=== PATIENT | female | born 1990 | race Caucasian/White ===

== ENCOUNTER 2018-10-05 22:32 | Emergency (ER) | payer SELFPAY ==
--- NOTE | 2018-10-05 23:28 | ED PDOC ---
HPI: Abdomen Chief Complaint (Nursing): GI Problem History Per: Patient History/Exam Limitations: no limitations Onset/Duration Of Symptoms: Days (3) Quality Of Discomfort: Burning Associated Symptoms: Nausea, Vomiting, Loss Of Appetite Exacerbating Factors: Food Additional Complaint(s): Pt is a 28 y/o female with hx of Gastritis and Chronic Canniboid use presenting with intractable vomiting and epigastric burning pain since Sunday. States that the vomiting is mostly undigested food, worsened with food and slightly improved with smoking marijuana. She admits that she smokes MJ everyday and on occasion will feel nauseated if she skips days, last smoked was yesterday morning. She denies fever/chills, sick contacts, cough/congestion, diarrhea, blood in stool, or recent alcohol ingestion. ROS: + Constipation, Last BM 2 days ago, passing gas. PMD: none PMHX: Gastritis, Prior ED visit for intractable vomiting PSurg: None Meds: none Social: Denies smoking cigarettes, smokes canniboid daily, denies heavy EOTH use Past Medical History Reviewed: Historical Data, Nursing Documentation, Vital Signs Vital Signs: Last Vital Signs Temp 98.3 F 10/05/18 22:44 Pulse 74 10/05/18 22:44 Resp 16 10/05/18 22:44 BP 117/80 10/05/18 22:44 Pulse Ox 100 10/05/18 22:44 - Medical History PMH: Asthma, Gastritis - Surgical History Surgical History: No Surg Hx - Family History Family History: States: Unknown Family Hx - Immunization History Hx Tetanus Toxoid Vaccination: No - Home Medications Home Medications: Ambulatory Orders Medication Instructions Recorded Cephalexin [Keflex] 500 mg PO BID #14 cap 04/30/14 DiphenhydrAMINE [Benadryl] 25 mg PO Q4H PRN #30 cap 04/30/14 Dicyclomine [Bentyl] 20 mg PO BID PRN #30 tab 02/11/16 Omeprazole Magnesium [Prilosec Otc] 20 mg PO DAILY #30 tcp 02/11/16 Ondansetron [Zofran] 4 mg PO Q8H PRN #30 tab 02/11/16 Famotidine [Pepcid] 20 mg PO DAILY #14 tab 03/26/16 Omeprazole 20 mg PO DAILY #30 capsule. 03/26/16 Ondansetron ODT [Zofran ODT] 4 mg PO Q8 PRN #12 odt 03/26/16 Famotidine [Pepcid] 20 mg PO DAILY #30 tab 08/11/16 Ondansetron [Zofran Odt] 4 mg PO ASDIR PRN #20 odt 08/11/16 traMADol [Ultram] 50 mg PO TID PRN #20 tab 08/11/16 - Allergies Allergies/Adverse Reactions: Allergies Allergy/AdvReac Type Severity Reaction Status Date / Time No Known Allergies Allergy Verified 10/05/18 22:47 Review of Systems Constitutional: Negative for: Fever, Chills Cardiovascular: Negative for: Chest Pain Respiratory: Negative for: Cough, Shortness of Breath Gastrointestinal: Positive for: Nausea, Vomiting, Abdominal Pain. Negative for: Diarrhea, Melena, Hematochezia, Hematemesis Physical Exam - Physical Exam Appears: Positive for: In Acute Distress (midly distressed, candy ctive vomiting seen ) Head Exam: Positive for: ATRAUMATIC Skin: Positive for: Normal Color Eye Exam: Positive for: Normal appearance. Negative for: Nystagmus, Scleral icterus ENT: Positive for: Normal ENT Inspection Neck: Positive for: Normal Cardiovascular/Chest: Positive for: Regular Rate, Rhythm Respiratory: Positive for: Normal Breath Sounds. Negative for: Accessory Muscle Use, Crackles, Rales, Wheezing Gastrointestinal/Abdominal: Positive for: Bowel Sounds, Soft, Tenderness (mild epigastric). Negative for: Organomegaly, Guarding, Hernia Extremity: Positive for: Capillary Refill. Negative for: Pedal Edema Neurologic/Psych: Positive for: Alert, Oriented - ECG O2 Sat by Pulse Oximetry: 100 Medical Decision Making Medical Decision Making: Pt is a 28 y/o female with hx of Gastritis and Chronic Canniboid use presenting with intractable vomiting and epigastric burning pain since Sunday. Likely cyclical vomiting syndrome related to chronic canniboid abuse. Pepcid Zofran Reglan Capcaicin topical cream 1L NS Bolus 0207 Pt re-assessed, states she feels better. Tolerated fluid. Counseled on cessation of marijuana and advised to establish care at clinic for f/u. Disposition - Clinical Impression Clinical Impression: Vomiting, Abdominal pain - Patient ED Disposition Is Patient to be Admitted: No Counseled Patient/Family Regarding: Studies Performed, Diagnosis, Need For Followup - Disposition Disposition: Routine/Home Disposition Time: 02:08 Condition: FAIR Additional Instructions: Avoid marijuana use,advance diet slowly, return if symptoms worsen. f/u with PMD. Instructions: Nausea and Vomiting, Adult, Marijuana Use and Addiction Forms: [facility] (Kinyarwanda)
[2018-10-05] MEDS ORDERED: Sodium Chloride 0.9% 1,000 ML IV SCH (23:30)
[2018-10-06 03:04] VITALS: BP 108/65; PULSE 60; RESP 18; TEMP 98.5; O2SAT 99
== END 2018-10-06 03:05 | disposition home or self-care (01) ==
LOC: H.ER 22:32
DX: R10.9 Unspecified abdominal pain (principal); R11.0 Nausea
CPT/HCPCS: 81025; 96361; 96374; 96375; 99284; J2405; J2765; J7030

== ENCOUNTER 2018-12-04 11:03 | Emergency (ER) | payer OTHER ==
[2018-12-04 11:07] VITALS: O2SAT 100; BMI 26.7
[2018-12-04] MEDS ORDERED: Sodium Chloride 0.9% 1,000 ML IV STA ×2 (11:28→16:08)
--- NOTE | 2018-12-04 11:50 | ED PDOC ---
HPI: Abdomen Time Seen by Provider: 12/04/18 11:14 Chief Complaint (Nursing): Abdominal Pain Chief Complaint (Provider): Abdominal Pain History Per: Patient History/Exam Limitations: no limitations Onset/Duration Of Symptoms: Days (4) Location Of Pain/Discomfort: Epigastric, Suprapubic Associated Symptoms: Vomiting Additional Complaint(s): 28 y/o female presents to the ED complaining of abdominal pain associated with vomiting since 4 days ago. Patient states diffused abdominal pain, present most of the time, and worst when she vomits. She reports she had a small amount of blood in her vomit only today. Patient suffers from gastritis but does not taken any medication for it. Patient admits having a chemical 1 week ago from being 7 weeks and had a small vaginal bleeding since then. She admits this was her 5th (g5). Patient denies bloody stool, diarrhea, urinary problems, food exposure, fever, or any back problems. PMD: none provided Past Medical History Reviewed: Historical Data, Nursing Documentation, Vital Signs Vital Signs: Last Vital Signs Temp 98.6 F 12/04/18 11:06 Pulse 68 12/04/18 11:06 Resp 15 12/04/18 11:06 BP 106/68 12/04/18 11:06 Pulse Ox 100 12/04/18 11:06 Primary Care Provider: FAMILY PROVIDER,NO - Medical History PMH: Asthma, Gastritis - Family History Family History: States: Unknown Family Hx - Immunization History Hx Tetanus Toxoid Vaccination: No - Home Medications Home Medications: Ambulatory Orders Medication Instructions Recorded Ondansetron ODT [Zofran ODT] 4 mg PO Q8 PRN #12 odt 12/04/18 Sulfamethoxazole/Trimethoprim 1 each PO BID #20 tablet 12/04/18 [Bactrim Ds Tablet] - Allergies Allergies/Adverse Reactions: Allergies Allergy/AdvReac Type Severity Reaction Status Date / Time No Known Allergies Allergy Verified 10/05/18 22:47 Review of Systems ROS Statement: Except As Marked, All Systems Reviewed And Found Negative Constitutional: Negative for: Fever Gastrointestinal: Positive for: Vomiting, Abdominal Pain (superpubic and epigastric), Hematemesis Genitourinary Female: Positive for: Vaginal Bleeding. Negative for: Dysuria, Frequency, Hematuria, Vaginal Discharge Musculoskeletal: Negative for: Back Pain Physical Exam - Reviewed Nursing Documentation Reviewed: Yes Vital Signs Reviewed: Yes - Physical Exam Appears: Positive for: Well, Non-toxic, No Acute Distress, Uncomfortable Head Exam: Positive for: ATRAUMATIC, NORMAL INSPECTION, NORMOCEPHALIC Skin: Positive for: Normal Color, Warm, Dry Eye Exam: Positive for: EOMI, Normal appearance, PERRL ENT: Positive for: Normal ENT Inspection Neck: Positive for: Normal, Painless ROM, Supple Cardiovascular/Chest: Positive for: Regular Rate, Rhythm. Negative for: Murmur Respiratory: Positive for: Normal Breath Sounds. Negative for: Wheezing Gastrointestinal/Abdominal: Positive for: Normal Exam, Soft, Tenderness (superpubic and epigastic. ) Back: Positive for: Normal Inspection. Negative for: L CVA Tenderness, R CVA Tenderness Extremity: Positive for: Normal ROM Neurological/Psych: Positive for: Awake, Alert, Normal Tone, Oriented (x3). Negative for: Motor/Sensory Deficits - Laboratory Results Result Diagrams: 12/04/18 12:55 12/04/18 12:55 - ECG O2 Sat by Pulse Oximetry: 100 - Progress Re-evaluation Time: 18:26 Condition: Re-examined, Improved Medical Decision Making Medical Decision Making: Time:1128 Initial Impression: Abdominal pain and vomiting. Acute gastritis, pancreatitis, UTI, complication, and incomplete miscarriage. Initial Plan: -CMP -Lipase -ED urine -CBC -Sodium chloride -Pepcid 20mg -Zofran 4mg -Urine culture -Urinalysis -Ultrasound -Reassess 1307: FINDINGS: LIVER: Measures 17.1 cm in length. Normal echogenicity of the liver parenchyma. There is a 2.0 x 1.9 x 1.3 cm there is a compressed hypoechoic lesion without central vascularity the right hepatic lobe not significantly changed since the prior examination. No intrahepatic bile duct dilatation. GALLBLADDER: There are no gallstones, wall thickening or pericholecystic fluid. The sonographic Barbosa's sign is negative. COMMON BILE DUCT: Measures 1.8 mm. No stones. No dilatation. PANCREAS: Unremarkable as visualized. No mass. No ductal dilatation. RIGHT KIDNEY: Measures 10.0 cm in length. Normal echogenicity. No calculus, mass, or hydronephrosis. AORTA: No aneurysmal dilatation. IVC: Unremarkable. OTHER FINDINGS: None . IMPRESSION: No cholelithiasis or biliary dilatation. 2.0 x 1.9 x 1.3 cm indeterminate lesion in the right hepatic lobe. A dedicated CT scan of the abdomen without and with intravenous contrast with liver protocol is recommended for definitive characterization. 1310: FINDINGS: UTERUS: Measures 10.4 x 6.5 x 5.0 cm. Anteverted, normal in size and appearance. No fibroid or other mass lesion seen. ENDOMETRIUM: Measures 14 mm in diameter. The central endometrial echo complex is heterogene ous without increased vascularity. CERVIX: There are presumable blood products in the endocervical canal. RIGHT OVARY: Measures 4.4 x 2.8 x 2.7 cm. No solid mass. Normal flow. There is a 2.7 x 2.6 x 2.1 cm simple cyst. LEFT OVARY: Measures 2.2 x 1.8 x 1.5 cm. No solid mass. Normal flow. FREE FLUID: No significant free fluid noted. OTHER FINDINGS: None. IMPRESSION: Heterogeneous central endometrial echo complex without evidence for retained products of conception most compatible with evolving block products. 0.7 cm simple cyst in right ovary. 1642 CT FINDINGS: LOWER THORAX: The visualized lungs are clear. LIVER: The liver is normal in size. There is homogeneous enhancement. No intrahepatic biliary ductal dilatation. There is redemonstration of a 1.7 x 1.9 cm isodense lesion in the posterior superior right hepatic lobe and a 2nd stable 1.9 x 1.5 cm isodense lesion in the posterior inferior right hepatic lobe. Both lesions demonstrate similar enhancing pattern with homogeneous enhancement in the portal venous phase. GALLBLADDER AND BILE DUCTS: The gallbladder is well distended without cholelithiasis. PANCREAS: Normal in size with homogeneous enhancement. No gross lesion or ductal dilatation. SPLEEN: Normal in size and appearance. ADRENALS: Normal in size without discrete nodule. KIDNEYS AND URETERS: Normal in size with homogeneous enhancement. No hydronephrosis. No solid mass. VASCULATURE: No aortic aneurysm. No aortic atherosclerotic calcification or mural plaque present. BOWEL: The visualized bowel is normal in caliber. No obstruction. No gross mural thickening. PERITONEUM: No free fluid. No free air. LYMPH NODES: No enlarged lymph nodes. BONES: No acute fracture. OTHER FINDINGS: None. IMPRESSION: Two discrete stable lesions in the posterior superior and posterior inferior right hepatic lobe measuring 1.7 x 1.9 cm and 1.9 x 1.5 cm respectively, both lesions demonstrate similar enhancing pattern enhancing in the portal venous phase and cannot be definitely characterized however are stable since March 2016 and most certainly benign. These are statistically most compatible with hepatic adenomas, the other differential consideration being atypical hemangiomas. --- Scribe Attestation: Documented by Salome Baker, acting as a scribe for Kristine Nice Provider Scribe Attestation: All medical record entries made by the Scribe were at my direction and perso rosalind dictated by me. I have reviewed the chart and agree that the record accurately reflects my personal performance of the history, physical exam, medical decision making, and the department course for this patient. I have also personally directed, reviewed, and agree with the discharge instructions and disposition. Disposition - Clinical Impression Clinical Impression: Abdominal pain in female, Vomiting, UTI (urinary tract infection) - Patient ED Disposition Is Patient to be Admitted: No Doctor Will See Patient In The: Office Counseled Patient/Family Regarding: Studies Performed, Diagnosis, Need For Followup - Disposition Referrals: [facility] [Outside] Disposition: Routine/Home Disposition Time: 18:27 Condition: IMPROVED Additional Instructions: SHIRLEY DAWSON, thank you for letting us take care of you today. Your provider was Kristine Nice MD and you were treated for ABD PAIN, VOMITING. The emergency medical care you received today was directed at your acute symptoms. If you were prescribed any medication, please fill it and take as directed. It may take several days for your symptoms to resolve. Return to the Emergency Department if your symptoms worsen, do not improve, or if you have any other problems. Please contact your doctor or call one of the physicians/clinics you have been referred to that are listed on the Patient Visit Information form that is included in your discharge packet. Bring any paperwork you were given at discharge with you along with any medications you are taking to your follow up visit. Our treatment cannot replace ongoing medical care by a primary care provider outside of the emergency department. Thank you for allowing the [facility] team to be part of your care today. If you had an X-Ray or CT scan: A Radiologist will review the ED reading if any change in treatment is needed we will contact you. If you had a blood, urine, or wound culture: It will take several days for the results, if any change in treatment is needed we will contact you. Prescriptions: Ondansetron ODT [Zofran ODT] 4 mg PO Q8 PRN #12 odt PRN Reason: Nausea/Vomiting Sulfamethoxazole/Trimethoprim [Bactrim Ds Tablet] 1 each PO BID #20 tablet Instructions: Urinary Tract Infections in Adults, Stomach Ache and Stomach Upset Forms: [employer] (Hebrew)
[2018-12-04 11:55] LABS: SQUAMOUS EPITHIAL 7 /hpf (0-5); URINE BACTERIA MOD (<OCC); URINE BILIRUBIN NEGATIVE (NEGATIVE); URINE BLOOD LARGE (NEGATIVE); URINE CLARITY CLOUDY (Clear); URINE COLOR YELLOW (YELLOW); URINE GLUCOSE (UA) NEG (NEGATIVE); URINE LEUKOCYTE ESTERASE LARGE Leu/uL (Negative); URINE PROTEIN 30 mg/dL (NEGATIVE); URINE UROBILINOGEN 0.2-1.0 mg/dL (0.2-1.0)
--- NOTE | 2018-12-04 13:11 | US ---
Date of service: 12/04/2018 HISTORY: epigastric pain vomiting COMPARISON: 08/11/2016. TECHNIQUE: Grayscale imaging was performed. FINDINGS: LIVER: Measures 17.1 cm in length. Normal echogenicity of the liver parenchyma. There is a 2.0 x 1.9 x 1.3 cm there is a compressed hypoechoic lesion without central vascularity the right hepatic lobe not significantly changed since the prior examination. No intrahepatic bile duct dilatation. GALLBLADDER: There are no gallstones, wall thickening or pericholecystic fluid. The sonographic Barbosa's sign is negative. COMMON BILE DUCT: Measures 1.8 mm. No stones. No dilatation. PANCREAS: Unremarkable as visualized. No mass. No ductal dilatation. RIGHT KIDNEY: Measures 10.0 cm in length. Normal echogenicity. No calculus, mass, or hydronephrosis. AORTA: No aneurysmal dilatation. IVC: Unremarkable. OTHER FINDINGS: None . IMPRESSION: No cholelithiasis or biliary dilatation. 2.0 x 1.9 x 1.3 cm indeterminate lesion in the right hepatic lobe. A dedicated CT scan of the abdomen without and with intravenous contrast with liver protocol is recommended for definitive characterization.
--- NOTE | 2018-12-04 13:14 | US ---
Date of service: 12/04/2018 HISTORY: Suprapubic pain s/p induced 1 week ago COMPARISON: None available. TECHNIQUE: Transvaginal pelvic ultrasound was performed. FINDINGS: UTERUS: Measures 10.4 x 6.5 x 5.0 cm. Anteverted, normal in size and appearance. No fibroid or other mass lesion seen. ENDOMETRIUM: Measures 14 mm in diameter. The central endometrial echo complex is heterogeneous without increased vascularity. CERVIX: There are presumable blood products in the endocervical canal. RIGHT OVARY: Measures 4.4 x 2.8 x 2.7 cm. No solid mass. Normal flow. There is a 2.7 x 2.6 x 2.1 cm simple cyst. LEFT OVARY: Measures 2.2 x 1.8 x 1.5 cm. No solid mass. Normal flow. FREE FLUID: No significant free fluid noted. OTHER FINDINGS: None. IMPRESSION: Heterogeneous central endometrial echo complex without evidence for retained products of conception most compatible with evolving block products. 0.7 cm simple cyst in right ovary.
[2018-12-04 13:37] LABS: BASO % 0.2 % (0.0-2.0); EOS % 0.1 % (0.0-4.0); HEMOGLOBIN 12.6 g/dL (12.0-16.0); LYMPH # 1.8 K/uL (1.0-4.3); LYMPH % 11.5 % (20.0-40.0); MEAN CELL VOLUME 85.9 fl (81.0-99.0); MEAN CORPUSCULAR HEMOGLOBIN 28.5 pg (27.0-31.0); MEAN CORPUSCULAR HGB CONC 33.2 g/dL (33.0-37.0); MEAN PLATELET VOLUME 7.3 fl (7.2-11.7); MONO # 1.1 K/uL (0.0-0.8); MONO % 6.8 % (0.0-10.0); NEUT # 12.9 K/uL (1.8-7.0); NEUT % 81.4 % (50.0-75.0); RBC 4.41 Mil/uL (3.80-5.20); RED CELL DISTRIBUTION WIDTH 13.3 % (11.5-14.5); WHITE BLOOD COUNT 15.8 K/uL (4.8-10.8)
[2018-12-04 13:47] LABS: ALB/GLOB RATIO 1.3 (1.0-2.1); ALT/SGPT 59 U/L (9-52); AST/SGOT 39 U/L (14-36); BLOOD UREA NITROGEN 18 mg/dl (7-17); CALCIUM 9.3 mg/dL (8.4-10.2); GFR NON-AFRICAN AMERICAN > 60; LIPASE 30 U/L (23-300)
[2018-12-04 15:10] LABS: VENOUS BLOOD GAS PCO2 31 mmHg (40-60); VENOUS BLOOD GAS PO2 33 mm/Hg (30-55); VENOUS BLOOD PH 7.52 (7.32-7.43)
[2018-12-04] MEDS ORDERED: Sodium Chloride 0.9% 50 ML IV ONE (15:27)
[2018-12-04] MEDS ORDERED: Iohexol 300 100 ML IJ ONE (15:27)
[2018-12-04] MEDS ORDERED: cefTRIAXone (Rocephin) 1 gm Inj ONE (15:51)
--- NOTE | 2018-12-04 16:45 | CT ---
Date of service: 12/04/2018 PROCEDURE: CT Abdomen and Pelvis with and without intravenous contrast HISTORY: Abdominal pain, liver lesion COMPARISON: CT abdomen and pelvis from 03/26/2016 and ultrasound abdomen from 12/04/2018 and 08/11/2016. TECHNIQUE: Axial images of the abdomen were obtained in the pre contrast, portal venous and delayed phases of enhancement. Coronal and sagittal reformats were generated. Contrast dose: 95 mL Omnipaque 300 Radiation dose: Total exam DLP = 803.66 mGy-cm. This CT exam was performed using one or more of the following dose reduction techniques: Automated exposure control, adjustment of the mA and/or kV according to patient size, and/or use of iterative reconstruction technique. FINDINGS: LOWER THORAX: The visualized lungs are clear. LIVER: The liver is normal in size. There is homogeneous enhancement. No intrahepatic biliary ductal dilatation. There is redemonstration of a 1.7 x 1.9 cm isodense lesion in the posterior superior right hepatic lobe and a 2nd stable 1.9 x 1.5 cm isodense lesion in the posterior inferior right hepatic lobe. Both lesions demonstrate similar enhancing pattern with homogeneous enhancement in the portal venous phase. GALLBLADDER AND BILE DUCTS: The gallbladder is well distended without cholelithiasis. PANCREAS: Normal in size with homogeneous enhancement. No gross lesion or ductal dilatation. SPLEEN: Normal in size and appearance. ADRENALS: Normal in size without discrete nodule. KIDNEYS AND URETERS: Normal in size with homogeneous enhancement. No hydronephrosis. No solid mass. VASCULATURE: No aortic aneurysm. No aortic atherosclerotic calcification or mural plaque present. BOWEL: The visualized bowel is normal in caliber. No obstruction. No gross mural thickening. PERITONEUM: No free fluid. No free air. LYMPH NODES: No enlarged lymph nodes. BONES: No acute fracture. OTHER FINDINGS: None. IMPRESSION: Two discrete stable lesions in the posterior superior and posterior inferior right hepatic lobe measuring 1.7 x 1.9 cm and 1.9 x 1.5 cm respectively, both lesions demonstrate similar enhancing pattern enhancing in the portal venous phase and cannot be definitely characterized however are stable since March 2016 and most certainly benign. These are statistically most compatible with hepatic adenomas, the other differential consideration being atypical hemangiomas.
[2018-12-04 19:32] VITALS: BP 118/70; PULSE 72; RESP 17; TEMP 98.3
== END 2018-12-04 19:15 | disposition home or self-care (01) ==
LOC: H.ER 11:03
DX: R10.9 Unspecified abdominal pain (principal); R11.10 Vomiting, unspecified; N39.0 Urinary tract infection, site not specified; K76.9 Liver disease, unspecified; K29.00 Acute gastritis without bleeding
CPT/HCPCS: 74178; 76705; 76830; 80053; 81003; 82803; 83690; 85025; 87040; 87086; 96361; 96365; 96375; 96376; 99284; J0696; J1885; J2270; J2405; J7030; Q9967

== ENCOUNTER 2018-12-06 21:44 | Emergency (ER) | payer OTHER ==
[2018-12-06 21:44] VITALS: BMI 26.7
[2018-12-06 21:52] VITALS: RESP 16; O2SAT 99
[2018-12-06] MEDS ORDERED: Sodium Chloride 0.9% 1,000 ML IV SCH (23:15)
[2018-12-06 23:58] LABS: BASO # 0.1 K/uL (0.0-0.2); BASO % 0.7 % (0.0-2.0); EOS # 0.1 K/uL (0.0-0.7); EOS % 0.6 % (0.0-4.0); HEMOGLOBIN 14.2 g/dL (12.0-16.0); LYMPH # 2.6 K/uL (1.0-4.3); LYMPH % 21.2 % (20.0-40.0); MEAN CELL VOLUME 85.2 fl (81.0-99.0); MEAN CORPUSCULAR HEMOGLOBIN 28.7 pg (27.0-31.0); MEAN CORPUSCULAR HGB CONC 33.7 g/dL (33.0-37.0); MEAN PLATELET VOLUME 6.9 fl (7.2-11.7); MONO # 1.1 K/uL (0.0-0.8); MONO % 9.2 % (0.0-10.0); NEUT # 8.3 K/uL (1.8-7.0); NEUT % 68.3 % (50.0-75.0); NRBC % 0.1 % (0.0-0.0); RBC 4.96 Mil/uL (3.80-5.20); RED CELL DISTRIBUTION WIDTH 12.7 % (11.5-14.5); WHITE BLOOD COUNT 12.2 K/uL (4.8-10.8)
[2018-12-07 00:05] LABS: SQUAMOUS EPITHIAL 3 /hpf (0-5); URINE AMORPHOUS SEDIMENT RARE /ul (<OCC); URINE BACTERIA RARE (<OCC); URINE BILIRUBIN NEGATIVE (NEGATIVE); URINE BLOOD SMALL (NEGATIVE); URINE CLARITY CLOUDY (Clear); URINE COLOR YELLOW (YELLOW); URINE GLUCOSE (UA) NEG (NEGATIVE); URINE LEUKOCYTE ESTERASE NEG Leu/uL (Negative); URINE PROTEIN NEGATIVE (NEGATIVE); URINE UROBILINOGEN 0.2-1.0 mg/dL (0.2-1.0)
[2018-12-07 00:08] LABS: ALB/GLOB RATIO 1.3 (1.0-2.1); ALBUMIN 4.4 g/dL (3.5-5.0); ALT/SGPT 72 U/L (9-52); AST/SGOT 29 U/L (14-36); BLOOD UREA NITROGEN 9 mg/dl (7-17); GFR NON-AFRICAN AMERICAN > 60; LIPASE 34 U/L (23-300)
--- NOTE | 2018-12-07 00:45 | ED PDOC ---
HPI: Abdomen Time Seen by Provider: 12/06/18 22:51 Chief Complaint (Nursing): GI Problem Chief Complaint (Provider): GI Problem History Per: Patient History/Exam Limitations: no limitations Onset/Duration Of Symptoms: Days (x5) Location Of Pain/Discomfort: Epigastric Associated Symptoms: Nausea, Vomiting. denies: Chest Pain, Urinary Symptoms Additional Complaint(s): 28 years old female with history of gastritis presents to ER for evaluation of abdominal pain, nausea and vomiting onset 5 days ago. Patient reports she was seen here on December 04 and was told she has UTI. She states she has been taking the antibiotics and Zofran with no improvement. She denies having any UTI symptoms. Patient reports pain is in the epigastric area radiating to umbilicus sometimes. She states when she eats or drinks, she feels something stuck in her abdomen and becomes nauseous and then vomits. Patient states she has no bowel movement since she has not been able to eat. She denies urinary symptoms, recent travel, chest pain and difficulty breathing. Patient is not taking any medication for gastritis. Her LNMP was on October 04 and patient reports she had chemical 2 weeks ago. PMD: None provided Past Medical History Reviewed: Historical Data, Nursing Documentation, Vital Signs Vital Signs: Last Vital Signs Temp 98.4 F 12/06/18 21:51 Pulse 68 12/06/18 21:51 Resp 16 12/06/18 21:51 BP 120/80 12/06/18 21:51 Pulse Ox 99 12/06/18 21:51 Primary Care Provider: FAMILY PROVIDER,NO - Medical History PMH: Asthma, Gastritis - Surgical History Surgical History: No Surg Hx Other surgeries: Eye surgery - Family History Family History: States: Unknown Family Hx - Social History Current smoker - smoking cessation education provided: Yes Alcohol: Social Drugs: Denies - Immunization History Hx Tetanus Toxoid Vaccination: No - Home Medications Home Medications: Ambulatory Orders Medication Instructions Recorded Ondansetron ODT [Zofran ODT] 4 mg PO Q8 PRN #12 odt 12/04/18 Sulfamethoxazole/Trimethoprim 1 each PO BID #20 tablet 12/04/18 [Bactrim Ds Tablet] Dicyclomine [Bentyl] 20 mg PO Q6 PRN #16 tab 12/07/18 Famotidine [Pepcid] 20 mg PO DAILY #30 tab 12/07/18 Metoclopramide HCl [Reglan] 10 mg PO TID PRN #12 tablet 12/07/18 - Allergies Allergies/Adverse Reactions: Allergies Allergy/AdvReac Type Severity Reaction Status Date / Time No Known Allergies Allergy Verified 12/06/18 21:53 Review of Systems ROS Statement: Except As Marked, All Systems Reviewed And Found Negative Cardiovascular: Negative for: Chest Pain Respiratory: Negative for: Shortness of Breath Gastrointestinal: Positive for: Nausea, Vomiting, Abdominal Pain Physical Exam - Reviewed Nursing Documentation Reviewed: Yes Vital Signs Reviewed: Yes - Physical Exam Appears: Positive for: Uncomfortable (In a mild obvious discomfort) Head Exam: Positive for: ATRAUMATIC, NORMOCEPHALIC Skin: Positive for: Normal Color, Warm, Dry Eye Exam: Positive for: Normal appearance, EOMI, PERRL ENT: Positive for: Normal ENT Inspection Cardiovascular/Chest: Positive for: Regular Rate, Rhythm. Negative for: Murmur Respiratory: Positive for: Normal Breath Sounds. Negative for: Respiratory Distress Gastrointestinal/Abdominal: Positive for: Bowel Sounds (normal), Tenderness (Diffused primarly in upper abdomen). Negative for: Mass, Guarding, Rebound Back: Positive for: Normal Inspection, R CVA Tenderness. Negative for: L CVA Tenderness Extremity: Positive for: Normal ROM. Negative for: Pedal Edema, Deformity Neurological/Psych: Positive for: Awake, Alert, Oriented (x3) - Laboratory Results Result Diagrams: 12/06/18 23:50 12/06/18 23:50 Lab Results: Total Bilirubin 0.5 mg/dl (0.2-1.3) 12/06/18 23:50 AST 29 U/L (14-36) 12/06/18 23:50 ALT 72 U/L (9-52) H D 12/06/18 23:50 Alkaline Phosphatase 57 U/L (38-126) 12/06/18 23:50 Total Protein 7.9 G/DL (6.3-8.2) 12/06/18 23:50 Albumin 4.4 g/dL (3.5-5.0) 12/06/18 23:50 Globulin 3.5 gm/dL (2.2-3.9) 12/06/18 23:50 Albumin/Globulin Ratio 1.3 (1.0-2.1) 12/06/18 23:50 Lipase 34 U/L (23-300) 12/06/18 23:50 Urine Color Yellow (YELLOW) 12/06/18 23:50 Urine Clarity Cloudy (Clear) 12/06/18 23:50 Urine pH 8.0 (5.0-8.0) 12/06/18 23:50 Ur Specific [place] 1.009 (1.003-1.030) 12/06/18 23:50 Urine Protein Negative mg/dL (NEGATIVE) 12/06/18 23:50 Urine Glucose (UA) Neg mg/dL (NEGATIVE) 12/06/18 23:50 Urine Ketones Negative mg/dL (NEGATIVE) 12/06/18 23:50 Urine Blood Small (NEGATIVE) 12/06/18 23:50 Urine Nitrate Negative (NEGATIVE) 12/06/18 23:50 Urine Bilirubin Negative (NEGATIVE) 12/06/18 23:50 Urine Urobilinogen 0.2-1.0 mg/dL (0.2-1.0) 12/06/18 23:50 Ur Leukocyte Esterase Neg [place]/uL (Negative) 12/06/18 23:50 Urine RBC (Auto) 3 /hpf (0-3) 12/06/18 23:50 Ur Squamous Epith Cells 3 /hpf (0-5) 12/06/18 23:50 Amorphous Sediment Rare /ul (<OCC) H 12/06/18 23:50 Urine Bacteria Rare (<OCC) 12/06/18 23:50 - ECG ECG Rhythm: Positive for: Normal QRS (and normal QTc), Sinus Rhythm. Negative for: ST/T Changes Rate: 60 O2 Sat by Pulse Oximetry: 99 (RA) Pulse Ox Interpretation: Normal Medical Decision Making Medical Decision Making: Time: 2313 initial impression - gastritis vs UTI vs pyelo --Repeat blood work -- pepcid, bentyl, toradol -- re eval Images from previous visit on December 04: CT Abdomen/Pelvis Findings: LOWER THORAX: The visualized lungs are clear. LIVER: The liver is normal in size. There is homogeneous enhancement. No intrahepatic biliary ductal dilatation. There is redemonstration of a 1.7 x 1.9 cm isodense lesion in the posterior superior right hepatic lobe and a 2nd stable 1.9 x 1.5 cm isodense lesion in the posterior inferior right hepatic lobe. Both lesions demonstrate similar enhancing pattern with homogeneous enhancement in the portal venous phase. GALLBLADDER AND BILE DUCTS: The gallbladder is well distended without cholelithiasis. PANCREAS: Normal in size with homogeneous enhancement. No gross lesion or ductal dilatation. SPLEEN: Normal in size and appearance. ADRENALS: Normal in size without discrete nodule. KIDNEYS AND URETERS: Normal in size with homogeneous enhancement. No hydronephrosis. No solid mass. VASCULATURE: No aortic aneurysm. No aortic atherosclerotic calcification or mural plaque present. BOWEL: The visualized bowel is normal in caliber. No obstruction. No gross mural thickening. PERITONEUM: No free fluid. No free air. LYMPH NODES: No enlarged lymph nodes. BONES: No acute fracture. OTHER FINDINGS: None. IMPRESSION: Two discrete stable lesions in the posterior superior and posterior inferior right hepatic lobe measuring 1.7 x 1.9 cm and 1.9 x 1.5 cm respectively, both lesions demonstrate similar enhancing pattern enhancing in the portal venous phase and cannot be definitely characterized however are stable since March 2016 and most certainly benign. These are statistically most compatible with hepatic adenomas, the other differential consideration being atypical hemangiomas. Gallbladder US FINDINGS: LIVER: Measures 17.1 cm in length. Normal echogenicity of the liver parenchyma. There is a 2.0 x 1.9 x 1.3 cm there is a compressed hypoechoic lesion without central vascularity the right hepatic lobe not significantly changed since the prior examination. No intrahepatic bile duct dilatation. GALLBLADDER: There are no gallstones, wall thickening or pericholecystic fluid. The sonographic Barbosa's sign is negative. COMMON BILE DUCT: Measures 1.8 mm. No stones. No dilatation. PANCREAS: Unremarkable as visualized. No mass. No ductal dilatation. RIGHT KIDNEY: Measures 10.0 cm in length. Normal echogenicity. No calculus, mass, or hydronephrosis. AORTA: No aneurysmal dilatation. IVC: Unremarkable. OTHER FINDINGS: None . IMPRESSION: No cholelithiasis or biliary dilatation. 2.0 x 1.9 x 1.3 cm indeterminate lesion in the right hepatic lobe. A dedicated CT scan of the abdomen without and with intravenous contrast with liver protocol is recommended for definitive characterization. Transvaginal US FINDINGS: UTERUS: Measures 10.4 x 6.5 x 5.0 cm. Anteverted, normal in size and appearance. No fibroid or other mass lesion seen. ENDOMETRIUM: Measures 14 mm in diameter. The central endometrial echo complex is heterogeneous without increased vascularity. CERVIX: There are presumable blood products in the endocervical canal. RIGHT OVARY: Measures 4.4 x 2.8 x 2.7 cm. No solid mass. Normal flow. There is a 2.7 x 2.6 x 2.1 cm simple cyst LEFT OVARY: Measures 2.2 x 1.8 x 1.5 cm. No solid mass. Normal flow. FREE FLUID: No significant free fluid noted. OTHER FINDINGS: None. IMPRESSION: Heterogeneous central endometrial echo complex without evidence for retained products of conception most compatible with evolving block products. 0.7 cm simple cyst in right ovary. 01:00 CXR reviewed by me - no active disease labs reviewed and compared to results from 12/04, WBC improved, UA neg leuk and nitrates 01:14 on re eval pt is sleeping, easily arousable, pt reports that pain is improved but continues to come and go with a tightening sensation in epigastric area, will treat with maalox PO 0225 on re eval pt reports she feels the same, pain comes and goes, she did not like the maalox, pt reports she is ready to go home though, abdomen is soft and non tender, labs have improved, likely gastritis, will give meds to treat and GI follow up Discussed results, diagnosis, treatment, return precautions and f/u with pt who is understanding, in agreement and stable for dc ScribeAttestation: Documented bySylwia Guerrero, acting as a scribe for KIMBERLEE Sanz. Provider ScribeAttestation: All medical record entries made by the Scribe were at my direction and personally dictated by me. I have reviewed the chart and agree that the record accurately reflects my personal performance of the history, physical exam, medical decision making, and the department course for this patient. I have also personally directed, reviewed, and agree with the discharge instructions and disposition. Disposition - Clinical Impression Clinical Impression: Gastritis, Abdominal pain - Patient ED Disposition Is Patient to be Admitted: No Counseled Patient/Family Regarding: Studies Performed, Diagnosis, Need For Followup, Rx Given - Disposition Referrals: [facility] [Outside] Nick Ronquillo MD, PhD [Staff Provider] - Disposition: Routine/Home Disposition Time: 02:29 Condition: IMPROVED Additional Instructions: The emergency medical care you received today was directed at your acute symptoms. If you were prescribed any medication, please fill it and take as directed. It may take several days for your symptoms to resolve. Return to the E mergency Department if your symptoms worsen, do not improve, or if you have any other problems. Please contact your doctor in 2 days for re-evaluation and follow up / or call one of the physicians/clinics you have been referred to that are listed on the Patient Visit Information form that is included in your discharge packet. Bring any paperwork you were given at discharge with you along with any medications you are taking to your follow up visit. Our treatment cannot replace ongoing medical care by a primary care provider (PCP) outside of the emergency department. Prescriptions: Dicyclomine [Bentyl] 20 mg PO Q6 PRN #16 tab PRN Reason: spasm Famotidine [Pepcid] 20 mg PO DAILY #30 tab Metoclopramide HCl [Reglan] 10 mg PO TID PRN #12 tablet PRN Reason: Nausea/Vomiting Instructions: Gastritis, Acute Abdomen (Belly Pain), Nausea and Vomiting, Adult (DC) Forms: [employer] ([place]) Print Language: [place] - POA Present On Arrival: None
[2018-12-07] MEDS ORDERED: Alum-Mag Hydrox-Simethicone Susp (30 mL) PO ONE (01:14)
[2018-12-07] MEDS ORDERED: Alum-Mag Hydrox-Simethicone Susp (30 mL) ONE (01:42)
[2018-12-07 02:43] VITALS: BP 118/76; TEMP 97.7
[2018-12-07 05:03] VITALS: PULSE 60
--- NOTE | 2018-12-07 09:29 | RAD ---
Date of service: 12/07/2018 HISTORY: epigastric pain COMPARISON: Comparison chest dated 03/26/2016 TECHNIQUE: Chest PA and lateral views FINDINGS: LUNGS: No active pulmonary disease. PLEURA: No significant pleural effusion identified. No pneumothorax apparent. CARDIOVASCULAR: No aortic atherosclerotic calcification present. Normal cardiac size. No pulmonary vascular congestion. OSSEOUS STRUCTURES: No significant abnormalities. VISUALIZED UPPER ABDOMEN: Normal. OTHER FINDINGS: None. IMPRESSION: No active disease.
--- NOTE | 2018-12-07 11:48 | CARD ---
APPROVED REPORT Date of service: 12/06/2018 EKG Measurement Heart [id number] <Conclusion> Normal sinus rhythm with sinus arrhythmia Normal ECG
== END 2018-12-07 02:42 | disposition home or self-care (01) ==
LOC: H.ER 21:44
DX: K29.70 Gastritis, unspecified, without bleeding (principal); R10.9 Unspecified abdominal pain; F17.200 Nicotine dependence, unspecified, uncomplicated; J45.909 Unspecified asthma, uncomplicated; Z79.899 Other long term (current) drug therapy
CPT/HCPCS: 71046; 80053; 81003; 81025; 83690; 85025; 87086; 93005; 96372; 96374; 96375; 99284; J0500; J1885; J7030